=== PATIENT | male | born 2000 | race Caucasian/White ===

== ENCOUNTER 2023-01-14 01:15 | Day surgery (SDC) | payer BC, SELFPAY ==
[2023-01-04 14:01] VITALS: BMI 17.2
--- NOTE | 2023-01-12 09:33 | PM.HPGS ---
History of Present Illness History of Present Illness Consent: Risks, benefits, and alternatives have been discussed and questions answered. Patient agrees to proceed with procedure. Chief complaint: other fecal abnormalities Narrative: Randy Napoles is a 22 year old male Was referred for diagnostic colonoscopy. recently he has seen blood in his stools on a couple of occasions. Mid occurred, he has not been constipated or straining. His stool itself was soft and brown but he saw large clumps of blood in the bowl. He does not have abdominal pain. There is no family history of inflammatory bowel disease. Review of Systems Review of Systems: All systems reviewed & are unremarkable except as noted in HPI and below PMFSH Social History Social History Smoking status: Never smoker Substance use: never Living arrangements: with family Meds Home Medications and Allergies Home Medications Medication Instructions Recorded Confirmed Type alprazolam 0.25 mg tablet 0.25 mg PO DAILY PRN Anxiety 01/04/23 01/04/23 History rizatriptan 10 mg tablet 10 mg PO DAILY PRN Migraine 01/04/23 01/04/23 History Headache Allergies Allergy/AdvReac Type Severity Reaction Status Date / Time cefdinir Allergy Unknown Rash Verified 01/04/23 13:58 Exam Const: General: alert Orientation/consciousness: patient oriented x3 Resp: Auscultation: clear to auscultation bilaterally Cardio: Rhythm: regular rhythm GI: GI Palp: Yes Soft to palpation and No Tenderness to palpation present (GI) Neuro: General: patient oriented x3 Assessment and Plan Assessment and plan (1) Blood in stool: Code(s): K92.1 - Melena Status: Acute Assessment and Plan: Colonoscopy with possible biopsy or polypectomy or cautery or injection of substances.
[2023-01-14 11:09] VITALS: BP 107/72; PULSE 81; RESP 18; TEMP 36.3; O2SAT 100
[2023-01-14] MEDS: LACTATED RINGERS 1,000 ML 150 ML IV CONT (11:17)
--- NOTE | 2023-01-14 11:59 | WPDANESEPPF ---
Anes - Initial Pre Proc Eval Procedure: Operation Date: 01/14/23 12:30 Proposed Procedures p Colonoscopy - Mac Fountain MD Date/Time: 01/14/23 11:59 Surgeon: Mac Fountain MD Pre Op Diagnosis: other fecal abnormalities Patient Data Age: 22 Gender: M Height: 1.65 m Weight: 47.4 kg Last Vital Signs Temp 97.3 F L 01/14/23 11:09 Pulse 81 01/14/23 11:09 Resp 18 01/14/23 11:09 BP 107/72 01/14/23 11:09 Pulse Ox 100 01/14/23 11:09 O2 Del Method Room Air 01/14/23 11:09 Allergies Allergy/AdvReac Type Severity Reaction Status Date / Time cefdinir Allergy Unknown Rash Verified 01/04/23 13:58 Home Medications Medication Instructions Recorded Confirmed Type alprazolam 0.25 mg tablet 0.25 mg PO DAILY PRN Anxiety 01/04/23 01/04/23 History rizatriptan 10 mg tablet 10 mg PO DAILY PRN Migraine 01/04/23 01/04/23 History Headache Patient hx anesthesia problems: none Family hx anesthesia problems: none Results Review: All pre-operative results and documents have been reviewed as part of the pre-operative evaluation. [facility] Social History Social History Smoking status: Never smoker Substance use: never Living arrangements: with family Anes - Eval Final PreProcedure Day of Procedure 01/14/23 11:59 Patient weight: normal Heart: regular rate and rhythm Lungs: clear to auscultation Airway: Mallampati scale class II Neurological: alert and oriented Last oral intake: >/= 8 hours ASA classification: II Emergent: no Anesthetic plan: proceed Anesthesia type and monitoring: general GIVS and standard monitoring Results Review: All pre-operative results and documents have been reviewed as part of the pre-operative evaluation. Informed Consent: The patient's anesthetic plan and its attendant risks and benefits were discussed with the patient/family/POA. Questions were solicited and answers provided to the satisfaction of the patient/family/POA.
[2023-01-14 13:19] VITALS: BP 96/53; PULSE 76; RESP 28; O2SAT 96
[2023-01-14 13:29] VITALS: BP 112/70; PULSE 81; RESP 21; O2SAT 100
[2023-01-14 13:39] VITALS: BP 104/71; PULSE 65; RESP 17; O2SAT 95
== END 2023-01-14 13:48 | disposition home or self-care (01) ==
PROVIDERS: PCP Physician Assistant; Visit Provider Internal Medicine Gastroenterology
PROC: 0DJD8ZZ Inspection of Lower Intestinal Tract, Via Natural or Artificial Opening Endoscopic (ICD-10-PCS; CPT 45378; principal; 2023-01-14 12:30)
DX: K64.8 Other hemorrhoids (principal)
CPT/HCPCS: 45378; J2001; J2405; J2704; J3010; J7120